=== PATIENT | female | born 1995 | race Caucasian/White ===

== ENCOUNTER 2020-01-18 09:32 | Emergency (ER) | payer BC, OTHER ==
[~2020-01-18] VITALS: Ht 172.7 cm; Wt 83.4 kg
[2020-01-18] MEDS ORDERED: ACETAMINOPHEN 325 MG TAB PO ONE (10:45)
[2020-01-18 13:58] VITALS: BP 155/85
== END 2020-01-18 14:00 | disposition home or self-care (01) ==
LOC: M ED 09:32
DX: O99.512 Diseases of the respiratory system complicating pregnancy, second trimester (principal); J06.9 Acute upper respiratory infection, unspecified; Z3A.24 24 weeks gestation of pregnancy
CPT/HCPCS: 87486; 87581; 87633; 87798; 87880; 99284; U0002

== ENCOUNTER → 2020-03-14 | Outpatient (CLI) | payer BC, OTHER ==
--- NOTE | 2020-03-15 02:56 | REP ---
Clinical: Growth evaluation Comparison: None . Findings: Examination demonstrates a single live intrauterine in cephalic presentation. motion is identified by technologist. Placenta is noted posterior/fundal and grade I I without evidence for placenta previa or abruption. Amniotic fluid volume is normal. Cervix measures 2.6 cm in length and appears closed. No evidence for nuchal cord. Gestational age by LMP 31 weeks 6 days with RACHELLE 05/10/2020 . Gestational age by current measurements 34 weeks 4 days. FHR equals 139 beats per minute. Amniotic fluid index: 18.8 cm Umbilical cord SD ratio: 2.33 (2.50 - 3.50) Estimated weight by current biometrical measurements 2,517 grams (greater than 97 percentile). Impression: Single live advanced gestation in cephalic presentation. Greater than expected interval growth is suggested based on given age by LMP. Electronically Signed by Angel Gan MD 03/15/2020 02:48 A
== END ==
LOC: M LRY 13:08
PROVIDERS: ATTEND Obstetrics & Gynecology
DX: Z34.93 Encounter for supervision of normal pregnancy, unspecified, third trimester (principal); Z3A.31 31 weeks gestation of pregnancy

== ENCOUNTER → 2020-04-09 | Outpatient (CLI) | payer BC, OTHER ==
[~2020-04-09] MED LIST: DIBU10OI TOP; DOCU100C16 PO; PEPC1TAB5 PO; PREN1CHW4 PO; SERT50TA29 PO; ZOLO50TA PO
--- NOTE | 2020-04-10 04:54 | REP ---
Clinical: Anatomical evaluation. Comparison: 03/14/2020 . Findings: Examination demonstrates a single live intrauterine in cephalic presentation. motion is identified by technologist. Placenta is noted posterior fundal and grade I I I without evidence for placenta previa or abruption. Amniotic fluid volume is normal. Cervix appears closed. Gestational age by LMP 35 weeks 4 days with RACHELLE 05/10/2020 . Gestational age by current measurements 37 weeks 3 days with RACHELLE 04/27/2020 . FHR equals 140 beats per minute. Estimated weight based on current measurements 3446 grams ( *greater than 97 percentile based on age by first ultrasound and LMP). Limited anatomical assessment demonstrates bilateral renal hydronephrosis renal pelvic diameters measuring 1.2 - 1.3 cm diameter. Impression: 1. Greater than expected interval growth. 2. Bilateral renal hydronephrosis suggested. Urinary bladder appears mildly distended. follow-up may be warranted.
== END ==
LOC: M WHC 14:13
PROVIDERS: ATTEND Advanced Practice Midwife
DX: Z36.88 Encounter for antenatal screening for fetal macrosomia (principal); Z3A.35 35 weeks gestation of pregnancy

== ENCOUNTER 2020-04-21 18:18 | Outpatient (CLI) | payer BC, OTHER ==
[~2020-04-21] VITALS: Ht 172.7 cm; Wt 88.0 kg
[2020-04-21 18:36] VITALS: BP 130/68
[2020-04-21] MEDS ORDERED: PREN1CHW4 PO (18:47)
[2020-04-21] MEDS ORDERED: ZOLO50TA PO (18:47)
[2020-04-21] MEDS ORDERED: PEPC1TAB5 PO (18:47)
[2020-04-21 20:02] VITALS: BP 120/78
--- NOTE | 2020-04-21 20:59 | IPNPDOC ---
Text Note Date of Service The patient was seen on 04/21/20. NOTE patient is a 25 yo @ 37+wks gestation presents with concern for regular ctx x 1 day. complicated by GDM and macrosomia. She was counseled during clinic regarding possible section due to macrosomia. She is concern that she needs to have delivery when she goes into labor. first baby was ~ 3500gm , uncomplicated. vitals: normal NAD, laying in bed, abd: gravid, soft, nt, cephalic by neville's le: no edema/erythema/tenderness fht: 135/mod francisco j/pos accel/no decel toco: irregular ctx ce: 1cm (per nursing exam) a/p patient not in labor. discussed with patient need for additional counseling with an OB provider regarding macrosomia for patient to make an informed decision on a primary section. return precautions given. f/u with clinic as scheduled. Le, DO VS,Shanele, I+O VS, Fishbone, I+O Vital Signs Date Time Temp Pulse Resp B/P (MAP) Pulse Ox O2 Delivery O2 Flow Rate FiO2 04/21/20 20:02 98.0 71 120/78 (92) 04/21/20 18:37 96 Room Air 04/21/20 18:36 20 ALANA SOUSA DO Apr 21, 2020 20:58
== END 2020-04-21 20:10 | disposition home or self-care (01) ==
LOC: M LDO 18:18
PROVIDERS: ATTEND Obstetrics & Gynecology
DX: O26.893 Other specified pregnancy related conditions, third trimester (principal); O24.419 Gestational diabetes mellitus in pregnancy, unspecified control; O47.1 False labor at or after 37 completed weeks of gestation; Z3A.37 37 weeks gestation of pregnancy

== ENCOUNTER 2020-04-27 14:15 | Inpatient (IN) | payer BC, OTHER ==
[2020-04-27] VITALS (41 sets, daily range): BP systolic 62–141; BP diastolic 33–84
[~2020-04-27] VITALS: Ht 172.7 cm; Wt 89.3 kg
[~2020-04-27 14:15] MED LIST changes: -DIBU10OI TOP; -DOCU100C16 PO; -SERT50TA29 PO
[2020-04-27] MEDS ORDERED: LACTATED RINGER'S 1000 ML IV ONE (15:45)
[2020-04-27 16:04] LABS: HEMATOCRIT 32.4 % (36.0-47.0); HEMOGLOBIN 9.9 g/dl (12.0-15.5); MEAN CORPUSCULAR HEMOGLOBIN 27.2 pg (27.0-33.0); MEAN CORPUSCULAR HGB CONC 30.6 g/dl (32.0-36.5); PLATELET COUNT, AUTOMATED 181 10^3/uL (150-450); RED BLOOD COUNT 3.64 10^6/uL (4.00-5.40)
[2020-04-27] MEDS ORDERED: FENTANYL 2MCG/ML ROPIVACAINE 0.2% IN 0.9% NACL 100ML IVBAG As Ordered ONE (16:45)
[2020-04-27] MEDS: LR 1,000 ML IV SCH ×2 (17:15→21:18)
[2020-04-27 17:25] LABS: HEMOGLOBIN A1c 4.9 %
[2020-04-27] MEDS ORDERED: ePHEDrine SULFATE 25 MG/5 ML(5MG/ML) SYRINGE IV PRN (18:00)
[2020-04-27] MEDS ORDERED: FENTANYL/ROPIVACAINE/NACL BAG 100 ML EPIDURAL SCH (18:00)
[2020-04-27] MEDS ORDERED: EPIDURAL COMMENT XX SCH (18:00)
[2020-04-27] MEDS ORDERED: ONDANSETRON 4MG/2ML VIAL IV PRN (18:00)
[2020-04-27] MEDS ORDERED: diphenhydrAMINE 50MG/ML VIAL (J1200) IV PRN (18:00)
[2020-04-27] MEDS ORDERED: REFRIGERATOR IV KEYS XX PRN (18:00)
[2020-04-27] MEDS ORDERED: EPIDURAL/PCA KEYS XX PRN (18:00)
[2020-04-27] MEDS ORDERED: NALOXONE INJ 0.4MG/1ML VIAL (J2310 PER 1MG) IV PRN (18:00)
[2020-04-27] MEDS ORDERED: OXYTOCIN DRIP 30 UNITS in IV 1 EA IV SCH (18:45)
[2020-04-27 23:30] LABS: CORD GAS ABE A -11.4; CORD GAS HCO3 A 19.6 MEQ/L; CORD GAS O2 SAT A 24.1 %; CORD GAS PCO2 A 65.1 mmHg; CORD GAS PH A 7.096 UNITS; CORD GAS PO2 A 17.6 mmHg; CORD GAS SBC A 14.2 MEQ/L; CORD GAS TCO2 A 21.6 MEQ/L
[2020-04-27 23:32] LABS: CORD GAS ABE V -10.2; CORD GAS HCO3 V 19.2 MEQ/L; CORD GAS O2 SAT V 23.1 %; CORD GAS PCO2 V 55.8 mmHg; CORD GAS PH V 7.155 UNITS; CORD GAS PO2 V 15.4 mmHg; CORD GAS SBC V 14.9 MEQ/L; CORD GAS TCO2 V 20.9 MEQ/L
[2020-04-27] MEDS ORDERED: ANUSOL HC CREAM 30GM TOP PRN (23:45)
[2020-04-27] MEDS ORDERED: METHYLERGONOVINE MALEATE 0.2 MG TAB PO PRN (23:45)
[2020-04-27] MEDS ORDERED: MEASLES,MUMPS,RUBELLA VACCINE INJ (MMR-II) (90707) SC SCH (23:45)
[2020-04-27] MEDS ORDERED: RHOGAM 300 MCG (1500 IU) INJ (J2790) IM SCH (23:45)
[2020-04-27] MEDS ORDERED: DOCUSATE SODIUM 100 MG CAP PO PRN (23:45)
[2020-04-27] MEDS ORDERED: MOM 30ML SUSPENSION UDC PO PRN (23:45)
[2020-04-27] MEDS ORDERED: OXYTOCIN INJ 10 UNITS/ML VIAL (J2590) IV ONE (23:45)
[2020-04-27] MEDS ORDERED: IBUPROFEN 600MG TAB PO PRN (23:45)
[2020-04-27] MEDS ORDERED: OXYTOCIN DRIP 30 UNITS in IV 1 EA IV ONE (23:45)
[2020-04-27] MEDS ORDERED: ACETAMINOPHEN TAB 650MG DOSE (2X325MG) PO PRN (23:45)
[2020-04-27] MEDS ORDERED: DIBUCAINE 1% OINTMENT 30GM TOP PRN (23:45)
[2020-04-28] VITALS (9 sets, daily range): BP systolic 118–133; BP diastolic 62–81
[2020-04-28] MEDS: ACETAMINOPHEN 500 MG TAB PO PRN (01:00)
[2020-04-28] MEDS ORDERED: LR 500 ML IV ONE (01:45)
[2020-04-28] MEDS: IBUPROFEN 800 MG TAB PO PRN ×2 (03:31→11:01)
[2020-04-28 06:17] LABS: GLUCOSE,RANDOM 82 MG/DL (LESS THAN 200)
[2020-04-28] MEDS: FIORICET TAB PO PRN ×3 (06:50→17:53)
--- NOTE | 2020-04-28 07:31 | IPN ---
DATE: 04/27/2020 2, para 1 admitted at 38 weeks of gestation with contractions increased, spontaneous rupture of membranes. Ferning was negative and she was admitted at 3 cm. She had adequate contractions moderate intensity. Category 1 strip. After epidural she was checked and found to be 5 cm, 80% effaced, -2 station, occiput transverse. We thought that she had a high leak because her perineum was wet. On digital examination we had moderate amount of fluid, clear Liqua saturating the pads possibly leaning towards polyhydramnios. The presenting part was well applied to the cervix. Safe to proceed.
[2020-04-28 08:03] LABS: HEMATOCRIT 32.2 % (36.0-47.0); HEMOGLOBIN 9.8 g/dl (12.0-15.5); MEAN CORPUSCULAR HEMOGLOBIN 27.2 pg (27.0-33.0); MEAN CORPUSCULAR HGB CONC 30.4 g/dl (32.0-36.5); MEAN CORPUSCULAR VOLUME 89.4 fl (80.0-96.0); PLATELET COUNT, AUTOMATED 160 10^3/uL (150-450); WHITE BLOOD COUNT 15.9 10^3/uL (4.0-10.0)
--- NOTE | 2020-04-28 09:06 | IPN ---
DATE: 04/28/2020 day #1. 25-year-old, 2, now para 2 admitted in spontaneous labor at 38 weeks of gestation. She had an LGA baby and then an AGDM1 not optimized control. She had an epidural in place. She did have a hypotensive episode prior to delivery, blood pressure 62/33, required ephedrine and an IV bolus just prior to delivery. We had some significant bradycardia but we delivered a live male infant, 9 pounds 9 ounces, 4340 grams uneventfully, scores were 9 and 9 at 1 and 5 minutes respectively. Arterial pH was 7.09, base excess -11.4, venous pH 7.15, base excess -10.2. On her first day we discussed phlebitis, cystitis, mastitis, endometritis, cellulitis, diet, exercise, pain management, perineal, breast and wound care. She unfortunately had the epidural catheter in place, it was leaking CSF fluid. Anesthesia came along and removed the epidural catheter. She leaked for a little while but subsequently now the leak has stopped. She had a bit of a headache prior to the leakage stopping but now that headache has resolved. The rest of the examination is unremarkable. Normocephalic, atraumatic. Neck full range of motion. Pupils equal and reactive to light. Distal pulses are symmetric. No evidence of DVT, PE or superficial phlebitis. Chest is clear bilaterally to the bases. No wheezes or rhonchi. No CVA tenderness. Abdomen is soft. Four quadrant bowel sounds are noted. Perineum is intact. Her blood pressure today is 118/62, respirations 18, pulse 64, temperature 97.1. Her admitting hemoglobin was 9.9, hematocrit 32.4 and platelets were 181, pending 24-hour hemoglobin will be done later. Her random sugar originally was 82 and her A1c was 4.9. In summary, we have a term gestation, delivered a live male. Plans are for discharge tomorrow morning pending her being seen by anesthesia. Medications were at [facility] and dispensed. She should have a 6-week checkup at [facility]. SUMMARY: Term gestation, large for gestational age infant, uncomplicated.
[2020-04-28] MEDS: SERTRALINE HCL 50 MG TAB PO SCH (09:17)
[2020-04-28] MEDS: PRENATAL VITAMINS CHEWABLE TABLET PO SCH (09:17)
--- NOTE | 2020-04-29 04:37 | HPE ---
DATE OF ADMISSION: 04/27/2020 25-year-old, 2, para 1, last menstrual period (LMP) 08/08/2019, estimated date of confinement (EDC) 05/10/2020, at 38 weeks with contractions and possible spontaneous rupture of membranes. RISK FACTORS: She has high anxiety, depression, area late transfer of care at 24 weeks, large for gestational age infant greater than 97th percentile. Baby has bilateral hydronephrosis. She has also failed her 1-hour glucose and was not able to do her 3-hour glucose tolerance test (GTT); however, looking at limited blood sugars, does not seem to be in optimal control. LABS: Are A positive, HIV negative, RPR negative, rubella immune. Varicella immune. Urine negative. G and C are negative. Hepatitis negative. 1-hour glucose was 152. GBS negative. She apparently was not able to do her 3-hour GTT. Urine is 1.015, pH 6, and negative. Blood pressure 120/78, respirations 20, pulse 71, temperature is 98.0. She had membranes stripped a couple of days ago they recently had intercourse as of this morning. ON EXAMINATION: She appears distressed. Symphysis fundus height is 38, vertex, occiput anterior (OA), 3 cm, soft, stretchy, -3 station, 60% effaced. Sterile examination: There is a lot of pooling in the vagina, but it is not amniotic fluid. A slide was performed. We could see bulging membranes through the speculum, a lot of mucus, and ferning was negative. Category 1 strip. She is normocephalic, atraumatic. Neck: Full range of motions. Pupils equal and reactive to light. Distal pulses are symmetric. No evident deep venous thrombosis (DVT), pulmonary embolism (PE), or superficial phlebitis. Chest is clear bilaterally to bases. No wheezes or rhonchi. No costovertebral angle (CVA) tenderness. Abdomen: Soft. Four quadrant bowel sounds are noted. No rashes, lesions, or pruritus. No arthralgia, myalgia. No complaint of joint pain. No complaint of cough, wheeze, shortness breath, or dyspnea on exertion. No bleeding. Neuro complete. No frequency, urgency. No nausea, vomiting, diarrhea, or constipation. No heat or cold sensitivities. Question about AGDM1 because her 1-hour glucose was 152. No history of sexually transmitted diseases (STDs). Her Pap smears are normal. PAST MEDICAL/SURGICAL: Unremarkable. FAMILY HISTORY: Noncontributory. She does not smoke, drink, abuse drugs. to a soldier. No domestic violence. Good support system. We discussed consent for vaginal delivery, which is delivery through vagina with possible use of forceps or vacuum devices if needed for maternal or indications. These are devices that can assist with vaginal delivery when normal pushing efforts cannot achieve delivery on their own or when delivery is needed in an emergency for baby's well being. Medications used to induce or augment labor or help labor along and achieve vaginal delivery. Episiotomy may be required to help the baby deliver vaginally. May also require repair of any lacerations/tears of the vagina/vulva that are caused by delivery. In some cases, emergencies arise to require emergency section. These are done for medical or indications. Discuss with her provider prior to continuing on. Sometimes it is safer to have a section delivery through the abdomen than it is vaginally for both mom and baby and continuing labor may only increase risk of morbidity or mortality. Other risks of vaginal delivery include, not limited to, bleeding, infection, injury to vagina, pelvic structures, injury to baby, damage to the uterus, reaction to anesthesia, uterine rupture, risk of hysterectomy for life-threatening bleeding issues, or even . Medications used to induce or augment labor may increase risk of infection, uterine tachysystole, uterine rupture, heart rate abnormalities, need for emergency section, or possible hysterectomy for bleeding. Risks of perineal lacerations. Risk of urinary bowel lacerations. Also increased risk to baby if forceps or vacuum are used for scratches, hematomas, or intracranial bleed. Patient expressed understanding of same. Safe to proceed. 40 minutes. All questions were answered.
[2020-04-29] MEDS: ACETAMINOPHEN 500 MG TAB PO PRN ×2 (05:55→11:58)
[2020-04-29 06:00] VITALS: BP 111/64
[2020-04-29] MEDS ORDERED: DOCU100C16 PO (06:30)
[2020-04-29] MEDS ORDERED: DIBU10OI TOP (06:30)
[2020-04-29] MEDS ORDERED: SERT50TA29 PO (06:30)
[2020-04-29] MEDS: PRENATAL VITAMINS CHEWABLE TABLET PO SCH (08:29)
[2020-04-29] MEDS: SERTRALINE HCL 50 MG TAB PO SCH (08:29)
--- NOTE | 2020-04-30 21:38 | DN ---
DATE: 04/27/2020 This lady is a 2, para 1 admitted at 38 weeks of gestation in spontaneous labor. She had an epidural in place and at full dilatation she had a significant hypotensive episode after bolusing herself with the epidural catheter, blood pressure 62/33, required ephedrine and a bolus of fluids. Baby had some prolonged bradycardia. Delivered a live male infant, 9 pounds 9 ounces, 4340 grams, scores of 9 and 9 at 1 and 5 minutes, respectively. Arterial pH 7.09, base excess -11.4, venous pH 7.15, base excess -10.2. The baby had terminal meconium and voiding. Uterus contracted well down on Pitocin. The placenta delivered spontaneously thereafter. Three-vessel cord. Membranes and tissues intact. Review of anterior, posterior, and lateral cardenas was normal. Sphincter was tight. The patient and baby tolerating the procedure well.
--- NOTE | 2020-05-01 13:47 | DSES ---
DATE OF ADMISSION: 04/27/2020 DATE OF DISCHARGE: 04/29/2020 This lady is a 25-year-old, 2, now para 2, admitted in spontaneous labor at 38 weeks of gestation. She had a spontaneous vaginal delivery with a hypotensive episode of 62/33 requiring a resuscitation with ephedrine and IV bolus, of a male , 9 pounds 9 ounces, 4340 grams, Apgars of 9 and 9 at one and five minutes respectively. Arterial pH 7.09, base excess -11.4; venous pH 7.15, base excess -10.2. On her second day, we discussed phlebitis, cystitis, mastitis, endometritis and cellulitis; diet, exercise and pain management; perineal, breast and wound care. The rest of the examination was unremarkable. She is normocephalic, atraumatic. Neck: Full range of motion. Pupils equal and reactive to light. Distal pulses symmetric. No evidence of deep vein thrombosis (DVT), pulmonary embolism (PE) or superficial phlebitis. Chest is clear bilaterally to bases. No wheezes or rhonchi. No CVA tenderness. Abdomen: Soft. Uterus two below. Lochia is moderate. Four quadrant bowel sounds are noted. The patient had a spinal headache because of CSF leak and she required a blood patch after which she is feeling much better. Her admitting hemoglobin 9.9, hematocrit 32.4 and platelets were 181. Discharge hemoglobin 9.8, hematocrit 32.2 and platelets were 160. Her vital signs on discharge were her blood pressure is 111/64, respirations 18, pulse 54, and temperature is 97.2. The patient is planning on going home today. We did offer to keep her for another 24 hours regarding the spinal headache. She was supposed to get Fioricet, however, because the spinal headache resolved with a blood patch she will no longer require the Fioricet. She does have meds at [facility] which are dispensed. She has a checkup at [facility] at 6 weeks. She was counseled regarding the reason to call provider regarding her spinal headache and her blood patch. She was also counseled regarding keeping pressure on her lower back as much as possible in order to seal the area. The patient is feeling much better now and is able to eat. She is not nauseated and has no hypotensive episodes. All questions were answered. 20-minute discussion. The patient was discharged improved.
--- NOTE | 2020-05-03 09:14 | IPN ---
DATE: 04/27/2020 This lady requested circumcision of her male . After discussing risks and benefits of circumcision, the medical and nonmedical indications, penile block and aftercare, expressed understanding of the penile block aftercare and bleeding. Signed the consent form. All questions were answered. 20-minute discussion. We await clearance by the purchasing buyer.
--- NOTE | 2020-05-03 09:17 | IPN ---
DATE: 04/28/2020 This patient had an epidural catheter which apparently leaked around and cerebrospinal fluid (CSF) was leaking through. Discussion with anesthesia. Initially, they requested giving her Fioricet in order to alleviate the pain. However, the patient was unable to lift her head, get out of bed or sit upright. Therefore, after discussion with anesthesia, the plan of management was changed and the patient will get a spinal patch after which we will reevaluate the patient. If she is more comfortable and symptomatology has resolved, Fioricet will not be prescribed.
== END 2020-04-29 18:30 | disposition home or self-care (01) | DRG 560 ==
LOC: M LDO 14:15 → M LDI 15:27 → M OBS 04-28 01:45
PROVIDERS: ADMIT Obstetrics & Gynecology; ATTEND Obstetrics & Gynecology
PROC: 10E0XZZ Delivery of Products of Conception, External Approach (ICD-10-PCS; principal; 2020-04-27)
PROC: 10907ZC Drainage of Amniotic Fluid, Therapeutic from Products of Conception, Via Natural or Artificial Opening (ICD-10-PCS; 2020-04-27)
PROC: 3E0S3GC Introduction of Other Therapeutic Substance into Epidural Space, Percutaneous Approach (ICD-10-PCS; 2020-04-28)
DX: O36.63X0 Maternal care for excessive fetal growth, third trimester, not applicable or unspecified (principal); Z3A.38 38 weeks gestation of pregnancy; O24.420 Gestational diabetes mellitus in childbirth, diet controlled; Z37.0 Single live birth; O89.4 Spinal and epidural anesthesia-induced headache during the puerperium

== ENCOUNTER → 2020-04-29 | Outpatient (CLI) | payer BC, OTHER ==
[~2020-04-29] MED LIST changes: +DIBU10OI TOP; +DOCU100C16 PO; +SERT50TA29 PO
== END ==
LOC: M LRY 09:31
PROVIDERS: ATTEND Advanced Practice Midwife
DX: Z53.8 Procedure and treatment not carried out for other reasons (principal)